=== PATIENT | female | born 1950 | race Caucasian/White ===

== ENCOUNTER 2017-06-29 14:54 | Emergency (ER) | payer MEDICARE, OTHER ==
[2017-06-29 15:06] VITALS: RESP 20; TEMP 96.6
[2017-06-29] MEDS ORDERED: SOLUMEDROL 125 MG/2 ML 125 MG/2 ML PDS ONE (15:17)
[2017-06-29] MEDS ORDERED: SOLUMEDROL 125 MG/2 ML 125 MG/2 ML PDS IV ONE (15:20)
[2017-06-29] MEDS: SODIUM CHLORIDE 0.9% FLUSH 10 ML SOL IV PRN ×2 (15:22→15:45)
[2017-06-29] MEDS ORDERED: FAMOTIDINE 10 MG/ML SOL IV ONE (15:35)
[2017-06-29 15:44] LABS: BASOPHILS % (AUTO) 1 % (0-3); EOSINOPHILS % (AUTO) 7 % (0-9); HEMATOCRIT 41 % (35-47); MEAN CORPUSCULAR HGB CONC 33.7 gm/dl (32.0-36.0); MEAN CORPUSCULAR VOLUME 88 fL (81-99); MONOCYTES % (AUTO) 4.2 % (0-12); NEUTROPHILS % (AUTO) 48.4 % (37-80)
[2017-06-29] MEDS ORDERED: FAMOTIDINE 20 MG TAB ONE (15:44)
[2017-06-29] MEDS: SODIUM CHLORIDE 0.9% 1000ML 1,000 ML IV SCH ×3 (15:45→17:47)
[2017-06-29 16:12] LABS: ALBUMIN 3.8 gm/dl (3.4-5.0); ALT 30 IU/L (14-63); CALCIUM 9.5 mg/dl (8.5-10.1); GLOM FILT RATE 46 mL/min (>60); POTASSIUM 3.6 mMol/L (3.5-5.1); SODIUM 141 mMol/L (136-145); THYROID STIMULATING HORMONE 6.321 uIU/ml (0.358-3.740)
[2017-06-29 18:04] VITALS: O2SAT 98
[2017-06-29 18:11] VITALS: BP 146/76; PULSE 110
[2017-06-30] MEDS ORDERED: FAMOTIDINE 20 MG TAB PO ONE (07:00)
== END 2017-06-29 17:32 | disposition home or self-care (01) | DRG 918 ==
LOC: ED 14:54
DX: T63.441A Toxic effect of venom of bees, accidental (unintentional), initial encounter (principal); T78.2XXA Anaphylactic shock, unspecified, initial encounter; T78.3XXA Angioneurotic edema, initial encounter
CPT/HCPCS: 36415; 80053; 84443; 84484; 85025; 93005; 99285; J2930; S0028